=== PATIENT | female | born 1995 | race Caucasian/White ===

== ENCOUNTER 2018-02-04 09:23 | Emergency (ER) | payer OTHER ==
[~2018-02-04] VITALS: Ht 172.7 cm; Wt 101.2 kg
[~2018-02-04 09:23] MED LIST: KEFLEX500 MG PO; MEDI-PHEDRINE30 MG; PYRIDIUM200 MG PO; TAMIFLU75 MG PO; TYLENOL EXTRA500 MG PO
== END 2018-02-04 10:28 | disposition home or self-care (01) ==
LOC: ED 09:23
DX: M25.552 Pain in left hip (principal)